=== PATIENT | female | born 1995 | race Caucasian/White ===

== ENCOUNTER 2023-10-09 09:45 | Emergency (ER) | payer MEDICAID, OTHER ==
[~2023-10-09] VITALS: Ht 157.5 cm; Wt 64.0 kg
[2023-10-09 10:23] VITALS: TEMP 98.6
[2023-10-09 10:25] VITALS: PULSE 124; RESP 20; O2SAT 94
[2023-10-09] MEDS: SODIUM CHLORIDE 0.9% 1,000 ML IV ONE (11:19)
[2023-10-09] MEDS: levETIRAcetam 1000 mg/100ml 100 ML IV ONE (11:55)
[2023-10-09] MEDS: LORazepam 2MG/ML-1ML VIAL IV ONE (11:55)
[2023-10-09 12:13] LABS: Basophils # (auto) 0.1 10 ^3/uL (0-0.2); Basophils % (auto) 0.6 % (0.0-2.0); Eosinophils # (auto) 0 10 ^3/uL (0-0.8); Hematocrit 41.6 % (36.0-46.0); Hemoglobin 14.3 g/dL (12.2-16.2); Lymphocytes % (auto) 20.4 % (10.0-50.0); Mean Corpuscular Hemoglobin 31.7 pg (28.0-32.0); Mean Corpuscular Hgb Conc. 34.4 g/dL (32.0-36.0); Mean Corpuscular Volume 92.1 fL (80.0-100.0); Monocytes # (auto) 0.3 10 ^3/uL (0-1.3); Monocytes % (auto) 2.8 % (0.0-12.0); Neutrophils # (auto) 7.4 10 ^3/uL (1.6-8.6); Neutrophils % (auto) 76.2 % (37.0-80.0); Red Blood Cells 4.51 10^6/uL (4.0-5.20); Red Cell Distribution Width 12.3 % (11.8-14.3); White Blood Cell 9.7 10^3/uL (4.4-10.8)
[2023-10-09 12:27] LABS: Alanine Aminotransferase 42 U/L (7-40); Alkaline Phosphatase 53 U/L (46-116); Anion Gap 6 (5-15); Aspartate Aminotransferase 41 U/L (13-40); BUN/Creatinine Ratio 10.2 (10.0-20.0); Bilirubin, Total 0.7 mg/dL (0.2-1.0); Blood Urea Nitrogen 6 mg/dL (9-23); Calcium 9.9 mg/dL (8.5-10.1); Carbon Dioxide 24 mmol/L (20-30); Chloride 106 mmol/L (98-107); Glucose 93 mg/dL (74-106); Potassium 4.3 mmol/L (3.5-5.1); Sodium 136 mmol/L (136-145); Total Protein 7.7 g/dL (5.7-8.2)
[2023-10-09 12:29] LABS: Thyroid Stimulating Hormone 0.92 uIU/mL (0.55-4.78)
[2023-10-09 12:34] LABS: Beta HCG, Quantitative 1.4 mIU/mL (1.5-4.2)
[2023-10-09 16:00] VITALS: BP 112/76; PULSE 110; RESP 16; O2SAT 98
[2023-10-09] MEDS ORDERED: DICL75TA2 PO (16:02)
== END 2023-10-09 16:52 | disposition home or self-care (01) ==
LOC: EDBD 09:45 → ER 09:45
DX: S80.02XA Contusion of left knee, initial encounter (principal); R10.2 Pelvic and perineal pain; S29.8XXA Other specified injuries of thorax, initial encounter; R55 Syncope and collapse; G40.909 Epilepsy, unspecified, not intractable, without status epilepticus; R74.8 Abnormal levels of other serum enzymes; Z79.899 Other long term (current) drug therapy; V43.52XA Car driver injured in collision with other type car in traffic accident, initial encounter; Y93.89 Activity, other specified; Y92.488 Other paved roadways as the place of occurrence of the external cause; Y99.8 Other external cause status
CPT/HCPCS: 36415; 70450; 71046; 73562; 80053; 84443; 84484; 84702; 85025; 93005; 96365; 96375; 99285; J1953; J2060; J7030

== ENCOUNTER 2024-04-20 14:07 | Emergency (ER) | payer BC, MEDICAID ==
[~2024-04-20] VITALS: Ht 162.6 cm; Wt 81.8 kg
[~2024-04-20 14:07] MED LIST: DICL75TA2 PO
[2024-04-20 15:01] LABS: Basophils # (auto) 0 10 ^3/uL (0-0.2); Basophils % (auto) 0.5 % (0.0-2.0); Eosinophils # (auto) 0 10 ^3/uL (0-0.8); Eosinophils % (auto) 0.4 % (0.0-7.0); Hematocrit 39.6 % (36.0-46.0); Hemoglobin 13.7 g/dL (12.2-16.2); Lymphocytes # (auto) 3.4 10 ^3/uL (0.4-5.4); Lymphocytes % (auto) 40.3 % (10.0-50.0); Mean Corpuscular Hemoglobin 31.5 pg (28.0-32.0); Mean Corpuscular Hgb Conc. 34.7 g/dL (32.0-36.0); Mean Corpuscular Volume 90.9 fL (80.0-100.0); Monocytes # (auto) 0.5 10 ^3/uL (0-1.3); Monocytes % (auto) 6.3 % (0.0-12.0); Neutrophils # (auto) 4.4 10 ^3/uL (1.6-8.6); Neutrophils % (auto) 52.5 % (37.0-80.0); Nucleated Red Blood Cells % 0.1 %; Platelet Count (auto) 395 10^3/uL (140-450); Red Blood Cells 4.36 10^6/uL (4.0-5.20); Red Cell Distribution Width 12.2 % (11.8-14.3); White Blood Cell 8.4 10^3/uL (4.4-10.8)
[2024-04-20 15:08] LABS: Alkaline Phosphatase 67 U/L (46-116); Anion Gap 9 (5-15); Aspartate Aminotransferase 39 U/L (13-40); BUN/Creatinine Ratio 11.7 (10.0-20.0); Blood Urea Nitrogen 9 mg/dL (9-23); Calcium 10.1 mg/dL (8.7-10.4); Carbon Dioxide 26 mmol/L (20-31); Chloride 104 mmol/L (98-107); Glucose 90 mg/dL (74-106); Magnesium 1.9 mg/dL (1.6-2.6); Potassium 3.7 mmol/L (3.5-5.1); Sodium 139 mmol/L (136-145); Total Protein 7.7 g/dL (5.7-8.2)
[2024-04-20 15:09] LABS: Bilirubin, Total 0.4 mg/dL (0.2-1.0)
[2024-04-20 15:19] LABS: Alanine Aminotransferase 47 U/L (7-40)
--- NOTE | 2024-04-20 15:35 | ED.PDOC ---
History of Present Illness HPI Comments 28 y/o F, with a Hx of seizures, presents for c/o seizure-like activity, today. Patient endorses on having a sudden and unprovoked seizure at work, today, that was witnessed by her coworkers. Patient states on being informed on having a seizure by aforementioned coworkers that lasted 2x minutes in duration and was characterized by gargling and her "staring off into space," while seated in her workstation. Patient comments only recalling on working, while seated, in front of her computer and then blackening out and awakening in the same wheelchair she presents in at time of assessment. She states on last seizure episode taking place in October 17 2023 and taking 500mg Keppra TID. 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 She denies any trauma, incontinence, headache, weakness, or other associated symptoms or modifiers at this time. Chief Complaint: Seizure Time Seen by MD: 15:05 Primary Care Provider: TASHA De La Fuente Notes: Nurses Notes, Medications, Allergies Allergies: Coded Allergies: NO KNOWN ALLERGIES (Unverified , 10/09/23) Home Meds Active Scripts Diclofenac Sodium (Diclofenac Sodium) 75 Mg Tab, 75 MG PO BID for 5 Days, #10 TAB Prov:KATT OSORIO MD 10/09/23 Information Source: Patient Mode of Arrival: Ambulatory Severity: Moderate Timing: Hours Duration: Minutes Prehospital treatment: None Past Medical History PAST MEDICAL HISTORY: Seizures Past Medical History (Other): obesity Surgical History: Denies all surgeries PICKLING 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 Family History Family History: Unknown Social History Smoker: Non-Smoker Alcohol: Denies ETOH Use Drugs: Denies Drug Use Lives In: Home Constitutional: denies: chills, diaphoresis, fatigue, fever, malaise, sweats, weakness, others EENTM: denies: blurred vision, double vision, ear bleeding, ear discharge, ear drainage, ear pain, ear ringing, eye pain, eye redness, hearing loss, mouth pain, mouth swelling, nasal discharge, nose bleeding, nose congestion, nose pain, photophobia, tearing, throat pain, throat swelling, voice changes, others Respiratory: denies: cough, hemoptysis, orthopnea, SOB at rest, shortness of breath, SOB with excertion, stridor, wheezing, others Cardiovascular: denies: chest pain, dizzy spells, diaphoresis, Dyspnea on exertion, edema, irregular heart beat, left arm pain, lightheadedness, palpitations, PND, syncope, others Gastrointestinal: denies: abdomen distended, abdominal pain, blood streaked bowels, constipated, diarrhea, dysphagia, difficulty swallowing, hematemesis, m joey, nausea, poor appetite, poor fluid intake, rectal bleeding, rectal pain, vomiting, others Genitourinary: denies: abnormal vagina bleeding, burning, dyspareunia, dysuria, flank pain, frequency, hematuria, incontinence, pain, , vagina discharge, urgency, others Neurological: reports: seizure; denies: dizziness, fainting, headache, left sided numbness, left sided weakness, numbness, paresthesia, pre-existing deficit, right sided numbness, right sided weakness, speech problems, tingling, tremors, weakness, others Musculoskeletal: denies: back pain, gout, joint pain, joint swelling, muscle pain, muscle stiffness, neck pain, others Integumetry: denies: bruises, change in color, change in hair/nails, dryness, laceration, lesions, lumps, rash, wounds, others Allergic/Immunocompromised: denies: Difficulty Healing, Frequent Infections, Hives, Itching, others Hematologic/Lymphatic: denies: anemia, blood clots, easy bleeding, easy bruising, swollen glands, others Endocrine: denies: excessive hunger, excessive sweating, excessive thirst, excessive urination, flushing, intolerance to cold, intolerance to heat, unexplained weight gain, unexplained weight loss, others Psychiatric: denies: anxiety, bipolar disorder, depression, hopeless, panic disorder, schizophrenia, sleepless, suicidal, others All Other Systems: Reviewed and Negative Physical Exam General Appearance: No Apparent Distress HEENT: Normal ENT Inspection, Pharynx Normal, TMs Normal Neck: Full Range of Motion, Non-Tender, Normal, Normal Inspection Respiratory: Chest Non-Tender, Lungs Clear, No Accessory Muscle Use, No Respiratory Distress, Normal Breath Sounds Cardiovascular: No Edema, No JVD, No Murmur, No Gallop, Normal Peripheral Pulses, Regular Rate/Rhythm Breast Exam: Deferred Gastrointestinal: No Organomegaly, Non Tender, No Pulsatile Mass, Normal Bowel Sounds, Soft Genitalia: Deferred Pelvic: Deferred Rectal: Deferred Extremities: No calf tenderness, Normal capillary refill, Normal inspection, Normal range of motion, Non-tender, No pedal edema Musculoskeletal : Apperance: Normal Neurologic: Alert, obstetrics nurse II-XII nml as Tested, No Motor Deficits, Normal Affect, Normal Mood, No Sensory Deficits Cerebellar Function: Normal Reflexes: Normal Skin: Dry, Normal Color, Warm Lymphatic: No Adenopathy Was a procedure done? Was a procedure done?: No Differential Dx Considerations may include: seizure, pseudoseizure, inappropriate medication dosage, electrolyte imbalance X-Ray, Labs, Meds, VS Vital Signs Date Time Temp Pulse Resp B/P (MAP) Pulse Ox O2 Delivery O2 Flow Rate FiO2 04/20/24 16:00 98.3 96 16 141/88 (105) 96 98.3 04/20/24 15:49 17 Room Air* 0 21 04/20/24 14:28 99.3 116 20 145/98 (114) 96 Lab Test 04/20/24 14:20 Range/Units White Blood Count 8.4 4.4-10.8 10^3/uL Red Blood Count 4.36 4.0-5.20 10^6/uL Hemoglobin 13.7 12.2-16.2 g/dL Hematocrit 39.6 36.0-46.0 % Mean Corpuscular Volume 90.9 80.0-100.0 fL Mean Corpuscular Hemoglobin 31.5 28.0-32.0 pg Mean Corpuscular Hemoglobin Concent 34.7 32.0-36.0 g/dL Red Cell Distribution Width 12.2 11.8-14.3 % Platelet Count 395 140-450 10^3/uL Mean Platelet Volume 7.4 6.9-10.8 fL Neutrophils (%) (Auto) 52.5 37.0-80.0 % Lymphocytes (%) (Auto) 40.3 10.0-50.0 % Monocytes (%) (Auto) 6.3 0.0-12.0 % Eosinophils (%) (Auto) 0.4 0.0-7.0 % Basophils (%) (Auto) 0.5 0.0-2.0 % Neutrophils # (Auto) 4.4 1.6-8.6 10 ^3/uL Lymphocytes # (Auto) 3.4 0.4-5.4 10 ^3/uL Monocytes # (Auto) 0.5 0-1.3 10 ^3/uL Eosinophils # (Auto) 0 0-0.8 10 ^3/uL Basophils # (Auto) 0 0-0.2 10 ^3/uL Nucleated Red Blood Cells 0.1 % Sodium Level 139 136-145 mmol/L Potassium Level 3.7 3.5-5.1 mmol/L Chloride Level 104 98-107 mmol/L Carbon Dioxide Level 26 20-31 mmol/L Anion Gap 9 5-15 Blood Urea Nitrogen 9 9-23 mg/dL Creatinine 0.77 0.550-1.02 mg/dL Glomerular Filtration Rate Calc 108 >90 mL/min BUN/Creatinine Ratio 11.7 10.0-20.0 Serum Glucose 90 74-106 mg/dL Calcium Level 10.1 8.7-10.4 mg/dL Magnesium Level 1.9 1.6-2.6 mg/dL Total Bilirubin 0.4 0.2-1.0 mg/dL Aspartate Amino Transferase (AST) 39 13-40 U/L Alanine Aminotransferase (ALT) 47 H 7-40 U/L Alkaline Phosphatase 67 46-116 U/L Total Protein 7.7 5.7-8.2 g/dL Albumin 5.0 H 3.2-4.8 g/dL Current Medications Medications (Trade) Dose Ordered Sig/Christie Route Start Time Stop Time Status Last Admin Levetiracetam (Keppra Tablet) 500 mg ONCE ONCE PO 04/20/24 15:30 04/20/24 15:31 DC 04/20/24 15:47 The CBC and chemistry panel are within normal limits The patient was given Keppra 500 mg by mouth here in the emergency department's At time, the patient will be discharged The patient was been seizure-free in the emergency department's The patient does have her evening dose of Keppra which she will take an home The patient will return to the emergency department's condition worsens. The patient understands and agrees with the management. We have explained to the patient that she can not operate any heavy per minutes including cars Time of 1ST Reevaluation: 15:35 Reevaluation 1ST: Unchanged Patient Education/Counseling: Diagnosis, Treatment, Prognosis, Need For Follow Up Family Education/Counseling: No Family Present Departure 1 Departure Time of Disposition: 16:07 Impression: Primary Impression: Breakthrough seizure Disposition: 01 HOME / SELF CARE / HOMELESS Condition: Fair Discharged With: Self Critical Care Note Critical Care Time?: No Stability Stability form required: No Heart Score Heart Score: Heart Score Response (Comments) Value History N/A 0 EKG N/A 0 Age N/A 0 Risk Factors N/A 0 Troponin N/A 0 Total 0 I personally scribed for SHERIE CHRISTENSEN MD ([email or web address]) on 04/20/24 at 15:35. Electronically submitted by Lukas Contreras ([email or web address]). SHERIE CHRISTENSEN MD Apr 20, 2024 15:35
[2024-04-20] MEDS: levETIRAcetam 500 MG TAB PO ONE (15:47)
[2024-04-20 15:49] VITALS: RESP 17
[2024-04-20 16:00] VITALS: BP 141/88; PULSE 96; RESP 16; TEMP 98.3; O2SAT 96
[2024-04-20 16:39] LABS: Urine Bacteria None Seen /hpf (None Seen)
[2024-04-20 17:36] LABS: Urine Blood Negative /uL (Negative); Urine Clarity Clear (Clear); Urine Color Colorless (Yellow); Urine Protein, UAD Negative (Negative); Urine Urobilinogen Normal (Negative); Urine WBC <1 /hpf (0 - 5); Urine pH 5.5 (5.0-9.0)
== END 2024-04-20 16:23 | disposition home or self-care (01) ==
LOC: ER 14:07
DX: G40.909 Epilepsy, unspecified, not intractable, without status epilepticus (principal); Z79.899 Other long term (current) drug therapy
CPT/HCPCS: 36415; 80053; 81001; 83735; 85025

== ENCOUNTER 2024-09-08 08:31 | Inpatient (IN) | payer BC ==
[~2024-09-08] VITALS: Ht 162.6 cm; Wt 99.1 kg
--- NOTE | 2024-09-08 08:42 | ED.PDOC ---
History of Present Illness HPI Comments 29-year-old female with PMHx Seizures brought in by EMS presents with a chief complaint of seizure activity x 1 hour. Per EMS, patient had x3 grand mal seizures that were witnessed by her mother at home this morning around 0600. Patient was initially postictal for EMS, but is now A&Ox4 upon arrival to the ER . There is mild oral trauma from patient biting her tongue during the seizure episodes. Patient is compliant with all her medications and states that she takes Keppra 500mg x3 times a day. Last seizure was x1 year ago. Patient is presenting with some nausea and vomiting x1 episode. Blood sugar was 134 on arrival. 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 Pertinent 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 History Family History Family History: Unknown Social History Smoker: Non-Smoker Alcohol: Denies ETOH Use Drugs: Denies Drug Use Lives In: Home Constitutional: denies: chills, diaphoresis, fatigue, fever, malaise, sweats, weakness, others EENTM: denies: blurred vision, double vision, ear bleeding, ear discharge, ear drainage, ear pain, ear ringing, eye pain, eye redness, hearing loss, mouth pain, mouth swelling, nasal discharge, nose bleeding, nose congestion, nose pain, photophobia, tearing, throat pain, throat swelling, voice changes, others Respiratory: denies: cough, hemoptysis, orthopnea, SOB at rest, shortness of breath, SOB with excertion, stridor, wheezing, others Cardiovascular: denies: chest pain, dizzy spells, diaphoresis, Dyspnea on exertion, edema, irregular heart beat, left arm pain, lightheadedness, palpitations, PND, syncope, others Gastrointestinal: reports: nausea, vomiting; denies: abdomen distended, abdominal pain, blood streaked bowels, constipated, diarrhea, dysphagia, difficulty swallowing, hematemesis, melena, poor appetite, poor fluid intake, rectal bleeding, rectal pain, others Genitourinary: denies: abnormal vagina bleeding, burning, dyspareunia, dysuria, flank pain, frequency, hematuria, incontinence, pain, , vagina discharge, urgency, others Neurological: reports: seizure; denies: dizziness, fainting, headache, left sided numbness, left sided weakness, numbness, paresthesia, pre-existing d eficit, right sided numbness, right sided weakness, speech problems, tingling, tremors, weakness, others Musculoskeletal: denies: back pain, gout, joint pain, joint swelling, muscle pain, muscle stiffness, neck pain, others Integumetry: denies: bruises, change in color, change in hair/nails, dryness, laceration, lesions, lumps, rash, wounds, others Allergic/Immunocompromised: denies: Difficulty Healing, Frequent Infections, Hives, Itching, others Hematologic/Lymphatic: denies: anemia, blood clots, easy bleeding, easy bruising, swollen glands, others Endocrine: denies: excessive hunger, excessive sweating, excessive thirst, excessive urination, flushing, intolerance to cold, intolerance to heat, unexplained weight gain, unexplained weight loss, others Psychiatric: denies: anxiety, bipolar disorder, depression, hopeless, panic disorder, schizophrenia, sleepless, suicidal, others All Other Systems: Reviewed and Negative Physical Exam General Appearance: Moderate Distress, Normal HEENT: Normal ENT Inspection, Pharynx Normal, TMs Normal Neck: Full Range of Motion, Non-Tender, Normal, Normal Inspection Respiratory: Chest Non-Tender, Lungs Clear, No Accessory Muscle Use, No Respiratory Distress, Normal Breath Sounds Cardiovascular: No Edema, No JVD, No Murmur, No Gallop, Normal Peripheral Pulses, Regular Rate/Rhythm Breast Exam: Deferred Gastrointestinal: No Organomegaly, Non Tender, No Pulsatile Mass, Normal Bowel Sounds, Soft Genitalia: Deferred Pelvic: Deferred Rectal: Deferred Extremities: No calf tenderness, Normal capillary refill, Normal inspection, Normal range of motion, Non-tender, No pedal edema Musculoskeletal : Apperance: Normal Neurologic: Disoriented Cerebellar Function: NOT DONE Reflexes: NOT DONE Skin: Dry, Normal Color, Warm Lymphatic: No Adenopathy Was a procedure done? Was a procedure done?: No Differential Dx Considerations may include: Seizure Electrolyte imbalance X-Ray, Labs, Meds, VS Vital Signs Date Time Temp Pulse Resp B/P (MAP) Pulse Ox O2 Delivery O2 Flow Rate FiO2 09/08/24 12:00 111 20 132/68 (89) 95 09/08/24 10:30 105 20 118/77 (91) 100 09/08/24 09:22 98.9 115 20 118/78 (91) 98.9 09/08/24 08:38 98.4 148 18 131/79 (96) 98 98.4 Lab Test 09/08/24 09:11 Range/Units White Blood Count 11.4 H 4.4-10.8 10^3/uL Red Blood Count 4.79 4.0-5.20 10^6/uL Hemoglobin 15.0 12.2-16.2 g/dL Hematocrit 43.3 36.0-46.0 % Mean Corpuscular Volume 90.4 80.0-100.0 fL Mean Corpuscular Hemoglobin 31.4 28.0-32.0 pg Mean Corpuscular Hemoglobin Concent 34.8 32.0-36.0 g/dL Red Cell Distribution Width 12.2 11.8-14.3 % Platelet Count 368 140-450 10^3/uL Mean Platelet Volume 7.1 6.9-10.8 fL Neutrophils (%) (Auto) 85.0 H 37.0-80.0 % Lymphocytes (%) (Auto) 12.3 10.0-50.0 % Monocytes (%) (Auto) 2.0 0.0-12.0 % Eosinophils (%) (Auto) 0.1 0.0-7.0 % Basophils (%) (Auto) 0.6 0.0-2.0 % Neutrophils # (Auto) 9.7 H 1.6-8.6 10 ^3/uL Lymphocytes # (Auto) 1.4 0.4-5.4 10 ^3/uL Monocytes # (Auto) 0.2 0-1.3 10 ^3/uL Eosinophils # (Auto) 0 0-0.8 10 ^3/uL Basophils # (Auto) 0.1 0-0.2 10 ^3/uL Nucleated Red Blood Cells 0.1 % Sodium Level 137 136-145 mmol/L Potassium Level 3.7 3.5-5.1 mmol/L Chloride Level 103 98-107 mmol/L Carbon Dioxide Level 20 20-31 mmol/L Anion Gap 14 5-15 Blood Urea Nitrogen 9 9-23 mg/dL Creatinine 0.83 0.550-1.02 mg/dL Glomerular Filtration Rate Calc 98 >90 mL/min BUN/Creatinine Ratio 10.8 10.0-20.0 Serum Glucose 117 H 74-106 mg/dL Calcium Level 10.2 8.7-10.4 mg/dL Current Medications Medications (Trade) Dose Ordered Sig/Christie Route Start Time Stop Time Status Last Admin Sodium Chloride 1,000 ml @ 1,000 mls/hr Q1H ONCE IV 09/08/24 09:00 09/08/24 09:59 DC 09/08/24 10:03 Levetiracetam 100 ml @ 400 mls/hr ONCE ONCE IV 09/08/24 09:00 09/08/24 09:14 DC 09/08/24 09:34 Acetaminophen (Tylenol Tablet) 650 mg ONCE ONCE PO 09/08/24 11:45 09/08/24 11:46 DC 09/08/24 11:50 Patient is slightly disoriented. Postictal. Vitals stable. Establish intravenous access. Was given fluids. Was given Keppra. Has a blood streak her in the corner of the mouth. Tongue abrasion. She has been tachycardic since she arrived. Wanted to discharge the patient when her heart rate still can continues to be high. Explained to the patient that she will need echocardiogram further testing because of the heart rate. Possible mitral valve. Cardiology consultation. Echocardiogram. Continue to monitor. Time of 1ST Reevaluation: 08:39 (EXPLAINED TO THE PATIENT THAT THEY MAY BE STAYING WITH US IN THE HOSPITAL, BUT IF STABLE FOR DISCHARGE, THEY WILL BE NOTIFIED AND SENT HOME. ) Reevaluation 1ST: Unchanged Time of 2ND Reevaluation: 09:03 Reevaluation 2ND: Unchanged Patient Education/Counseling: Diagnosis, Treatment Family Education/Counseling: No Family Present Departure 1 Departure Time of Disposition: 15:02 Impression: Primary Impression: Metabolic encephalopathy Additional Impressions: Seizure disorder Tachycardia Disposition: ADMITTED INPATIENT Admit to: Med Surg Condition: Guarded Comments 14:55 - SPOKE WITH THE PATIENT REGARDING FINDINGS/RESULTS AND THAT BASED ON PATIENT PRESENTATION AND SINUS TACHYCARDIA ONSET, IT WOULD BE BEST TO ADMIT THE PATIENT FOR CARDIOLOGY WORK-UP. PATIENT IS IN AGREEMENT WITH THE PLAN OF CARE. Critical Care Note Critical Care Time?: Yes (90 min-critical care time only) Critical care comment: She continues to be tachycardic. Stability Stability form required: No Heart Score Heart Score: Heart Score Response (Comments) Value History Slightly Suspicious 0 EKG Normal 0 Age <45 0 Risk Factors No known risk factors 0 Troponin Normal limit 0 Total 0 I personally scribed for RIA WOOD MD ([email or web address]) on 09/08/24 at 08:42. Electronically submitted by Marko Whitlock ([email or web address]). I personally scribed for RIA WOOD MD ([email or web address]) on 09/08/24 at 14:56. Electronically submitted by Marko Whitlock ([email or web address]). RIA WOOD MD September 08, 2024 08:42
[2024-09-08 09:29] LABS: Basophils # (auto) 0.1 10 ^3/uL (0-0.2); Basophils % (auto) 0.6 % (0.0-2.0); Eosinophils # (auto) 0 10 ^3/uL (0-0.8); Eosinophils % (auto) 0.1 % (0.0-7.0); Hematocrit 43.3 % (36.0-46.0); Lymphocytes # (auto) 1.4 10 ^3/uL (0.4-5.4); Lymphocytes % (auto) 12.3 % (10.0-50.0); Mean Corpuscular Hemoglobin 31.4 pg (28.0-32.0); Mean Corpuscular Hgb Conc. 34.8 g/dL (32.0-36.0); Mean Corpuscular Volume 90.4 fL (80.0-100.0); Monocytes # (auto) 0.2 10 ^3/uL (0-1.3); Neutrophils # (auto) 9.7 10 ^3/uL (1.6-8.6); Nucleated Red Blood Cells % 0.1 %; Platelet Count (auto) 368 10^3/uL (140-450); Red Blood Cells 4.79 10^6/uL (4.0-5.20); Red Cell Distribution Width 12.2 % (11.8-14.3); White Blood Cell 11.4 10^3/uL (4.4-10.8)
[2024-09-08] MEDS: levETIRAcetam 500 mg/100ml 100 ML IV ONE (09:34)
[2024-09-08 09:37] LABS: Chloride 103 mmol/L (98-107); Potassium 3.7 mmol/L (3.5-5.1); Sodium 137 mmol/L (136-145)
[2024-09-08 09:38] LABS: Anion Gap 14 (5-15)
[2024-09-08 09:39] LABS: Calcium 10.2 mg/dL (8.7-10.4)
[2024-09-08 09:44] LABS: BUN/Creatinine Ratio 10.8 (10.0-20.0); Blood Urea Nitrogen 9 mg/dL (9-23); Carbon Dioxide 20 mmol/L (20-31); Glucose 117 mg/dL (74-106)
[2024-09-08] MEDS: SODIUM CHLORIDE 0.9% 1,000 ML IV ONE ×2 (10:03→16:48)
[2024-09-08] MEDS: ACETAMINOPHEN 325 MG TAB PO ONE (11:50)
[2024-09-08] MEDS ORDERED: DOCUSATE SOD 100 MG CAP PO PRN (15:15)
[2024-09-08] MEDS ORDERED: NITROGLYCERIN 0.4 MG SL TAB SL PRN (15:15)
[2024-09-08] MEDS ORDERED: ONDANSETRON HCL 4 MG/2 ML VIAL IV PRN (15:15)
[2024-09-08] MEDS ORDERED: MORPHINE SULFATE INJ 2 MG/ml SYRG IV PRN (15:15)
[2024-09-08] MEDS ORDERED: LEVE500T3 PO (15:25)
[2024-09-08] MEDS: LORazepam 2MG/ML-1ML VIAL IV ONE (15:29)
--- NOTE | 2024-09-08 15:38 | DVHHP2 ---
History of Present Illness Reason for Visit: Seizure History of Present Illness Erin Caro is a 29-year-old female with past medical history of seizures, who came to the hospital today due to having 3 grand mal seizures. Patient lives with her mother. Her mother was home this morning and witnessed her seizures. She states she had 3 seizures. The first 2 were small, but the third lasted longer then normal, prompting her to call EMS. She states her daughter had blood coming out of her mouth, was gasping for air, and was turning purple. While in the ER it was discovered that her she is ST 120-130's. Patient states that she has been feeling palpitations for the last few months when going to bed. She st ates she mostly only feels it when laying down, and it is worse when she lays on her side. 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 Past Surgical History: None Smoke: No ALCOHOL: none Drugs: None Lives: with Family Domestic Violence: Neg Review of Systems Constitutional: No: Fever, Chills, Sweats, Weakness, Malaise, Other Eyes: No: Pain, Vision change, Conjunctivae inflammation, Eyelid inflammation, Other, Redness ENT: No: Ear pain, Ear discharge, Nose pain, Nose discharge, Nose congestion, Mouth pain, Mouth swelling, Throat pain, Throat swelling, Other Respiratory: No: Cough, Dry, Shortness of breath, SOB with excertion, Wheezing, Hemoptysis, Pleuritic Pain, Sputum, Wheezing, Other Cardiovascular: No: Chest Pain, Palpitations, Orthopnea, Paroxysmal Noc. Dyspnea, Edema, Lt Headedness, Other Gastrointestinal: No: Nausea, Vomiting, Abdominal Pain, Diarrhea, Constipation, Melena, Hematochezia, Other Genitourinary: No Dysuria, No Frequency, No Incontinence, No Hematuria, No Re tention, No Other Musculoskeletal: No: other, neck pain, shoulder pain, arm pain, back pain, hand pain, leg pain, foot pain Skin: No: Rash, Lesions, Jaundice, Bruising, Other Neurological: Seizures; No: Weakness, Numbness, Incoordination, Change in speech, Confusion, Other Allergies: Coded Allergies: NO KNOWN ALLERGIES (Unverified , 10/09/23) Medications Current Medications Medications Dose Ordered Sig/Christie Route Start Time Stop Time Status Last Admin Dose Admin Acetaminophen/ Hydrocodone Bitart 1 tab Q4HP PRN PO 09/08/24 15:15 UNV Ondansetron HCl 4 mg Q4HP PRN IV 09/08/24 15:15 UNV Docusate Sodium 100 mg BIDPRN PRN PO 09/08/24 15:15 UNV Acetaminophen 650 mg Q6HP PRN PO 09/08/24 15:15 UNV Nitroglycerin 0.4 mg Q5MINP PRN SL 09/08/24 15:15 UNV Morphine Sulfate 2 mg Q30M PRN IV 09/08/24 15:15 UNV Levetiracetam 500 mg TID PO 09/08/24 22:00 UNV Exam Vital Signs Vital Signs Date Time Temp Pulse Resp B/P (MAP) Pulse Ox O2 Delivery O2 Flow Rate FiO2 09/08/24 12:00 111 20 132/68 (89) 95 09/08/24 09:22 98.9 98.9 General Appearance: Alert, Oriented X3, Cooperative, mild distress HEENT: Atraumatic, PERRLA Respiratory: Clear to auscultation, Normal air movement Cardiovascular: Normal S1, Normal S2, Other (ST) Abdominal: Normal bowel sounds, Soft, No tenderness Extremities: No clubbing, No cyanosis, No edema, Normal pulses, No tenderness/swelling Skin: No rashes, No breakdown, No significant lesion Neuro: Normal gait, Normal speech, Strength at 5/5 X4 ext, Normal tone Psych/Mental Status: Mental status NL, Mood NL Labs/Xrays Labs Test 09/08/24 09:11 Range/Units White Blood Count 11.4 H 4.4-10.8 10^3/uL Red Blood Count 4.79 4.0-5.20 10^6/uL Hemoglobin 15.0 12.2-16.2 g/dL Hematocrit 43.3 36.0-46.0 % Mean Corpuscular Volume 90.4 80.0-100.0 fL Mean Corpuscular Hemoglobin 31.4 28.0-32.0 pg Mean Corpuscular Hemoglobin Concent 34.8 32.0-36.0 g/dL Red Cell Distribution Width 12.2 11.8-14.3 % Platelet Count 368 140-450 10^3/uL Mean Platelet Volume 7.1 6.9-10.8 fL Neutrophils (%) (Auto) 85.0 H 37.0-80.0 % Lymphocytes (%) (Auto) 12.3 10.0-50.0 % Monocytes (%) (Auto) 2.0 0.0-12.0 % Eosinophils (%) (Auto) 0.1 0.0-7.0 % Basophils (%) (Auto) 0.6 0.0-2.0 % Neutrophils # (Auto) 9.7 H 1.6-8.6 10 ^3/uL Lymphocytes # (Auto) 1.4 0.4-5.4 10 ^3/uL Monocytes # (Auto) 0.2 0-1.3 10 ^3/uL Eosinophils # (Auto) 0 0-0.8 10 ^3/uL Basophils # (Auto) 0.1 0-0.2 10 ^3/uL Nucleated Red Blood Cells 0.1 % Sodium Level 137 136-145 mmol/L Potassium Level 3.7 3.5-5.1 mmol/L Chloride Level 103 98-107 mmol/L Carbon Dioxide Level 20 20-31 mmol/L Anion Gap 14 5-15 Blood Urea Nitrogen 9 9-23 mg/dL Creatinine 0.83 0.550-1.02 mg/dL Glomerular Filtration Rate Calc 98 >90 mL/min BUN/Creatinine Ratio 10.8 10.0-20.0 Serum Glucose 117 H 74-106 mg/dL Calcium Level 10.2 8.7-10.4 mg/dL Assessment/Plan Assessment/Plan Assessment: Tachycardia, Seizure, Plan: Admit to Tele, Cardiology consult, ECHO, CT head, IV hydration, IV Keppra, PRN Ativan, Home medications reconciled, Plan discussed with: Patient, Other (Mother) My Orders Orders - DREW PARK Procedure Category Date Status Time Admit ADMIT 09/08/24 Transmitted 15:11 Code Status CODE 09/08/24 Transmitted 15:11 Hydrocodone-Acet PHA 09/08/24 Transmitted 5/325mg Tab ([place] 15:15 Ondansetron Hcl PHA 09/08/24 Transmitted (Zofran) 15:15 Docusate Sodium PHA 09/08/24 Transmitted Capsule (Colace 15:15 Complete Blood Count LAB 09/09/24 Verified 04:00 Comprehensive LAB 09/09/24 Verified Metabolic Panel 04:00 Condition: Serious OSCAR 09/08/24 Transmitted 15:11 Acetaminophen Tablet PHA 09/08/24 Transmitted (Tylenol Tablet) 15:15 Nitroglycerin [facility] 09/08/24 Transmitted Sublingual (Ntrostat 15:15 Morphine Sulfate PHA 09/08/24 Transmitted Injection 15:15 Stat Ekg For Chest [facility] 09/08/24 Transmitted Pain 15:11 Notify Md Of Changes [facility] 09/08/24 Transmitted From Base 15:11 Counterintelligence Analyst For [facility] 09/08/24 Transmitted 24 Hours 15:11 Emergency Dysrhythmia [facility] 09/08/24 Transmitted Protocol 15:11 Rhythm Strips Once [facility] 09/08/24 Transmitted Every Shift 15:11 Oxygen By Nasal 09/08/24 Transmitted Cannula 15:11 Seizure Precautions [facility] 09/08/[address] 15:11 Levetiracetam Tablet [facility] 09/08/24 Transmitted (Keppra Tablet) 22:00 Date of Service: September 08, 2024 Billing Provider: DREW PARK Common Visit Codes: [id number] INP/OBS CARE (MOD) DREW PARK September 08, 2024 15:38
[2024-09-08] MEDS ORDERED: LORazepam 2MG/ML-1ML VIAL IV PRN (15:45)
--- NOTE | 2024-09-08 15:54 | DVH ---
EXAM: CT HEAD WITHOUT CONTRAST INDICATION: seizure TECHNIQUE: CT of the head without intravenous contrast. Radiation Dose : 1. Head: CT Dose: CTDI volume is 52.2 mGy. Dose-length product is 837 mGy*cm The dose indicators for CT are the volume Computed Tomography (CT) Dose Index (CTDIvol) and the Dose Length Product (DLP), and are measured in units of mGy and mGy-cm, respectively. These indicators are not patient dose, but values generated from the CT scanner acquisition factors. The report includes radiation exposure data for exposures received during this examination. COMPARISON: CT HEAD WITHOUT CONTRAST on DOS: 10/09/23 FINDINGS: There is no evidence of acute intracranial hemorrhage, extra-axial collection, mass effect, midline s hift, herniation or hydrocephalus. The ventricles, sulci and cisterns are age appropriate. The jacome-white differentiation is intact. The visualized paranasal sinuses and mastoid air cells are clear. The surrounding soft tissues and osseous structures are unremarkable. IMPRESSION: No acute intracranial abnormality. Radiation optimization: All CT scans at this facility use at least one of these dose optimization villa hniques: automated exposure control mA and/or kV adjustment per patient size (includes targeted exam s where dose is matched to clinical indication) or iterative reconstruction.
[2024-09-08] MEDS: levETIRAcetam 500 MG TAB PO SCH (16:59)
--- NOTE | 2024-09-08 18:41 | DVHDS2 ---
ASSESSMENT ASSESSMENT Assessment Please refer patient to cardiology suite upon discharge to be fitted with spindle tester. She will be scheduled for clinic appointment with myself as well. Please consult for any new concerns. YASMINE DILL MD September 08, 2024 18:41
[2024-09-08] MEDS: ACETAMINOPHEN 325 MG TAB PO PRN (20:25)
[2024-09-08 23:42] VITALS: RESP 18; O2SAT 97
[2024-09-08 23:59] VITALS: BP 142/94; PULSE 124; RESP 18; TEMP 97.7; O2SAT 95
[2024-09-09] VITALS (9 sets, daily range): BP systolic 125–142; BP diastolic 82–98; PULSE 97–124; RESP 16–20; TEMP 97.2–99.5; O2SAT 95–98
[2024-09-09] MEDS ORDERED: MELA3TAB27 PO (01:29)
[2024-09-09] MEDS ORDERED: MAGN400T40 PO (01:29)
[2024-09-09 06:49] LABS: Basophils # (auto) 0 10 ^3/uL (0-0.2); Basophils % (auto) 0.4 % (0.0-2.0); Eosinophils # (auto) 0 10 ^3/uL (0-0.8); Eosinophils % (auto) 0.2 % (0.0-7.0); Hematocrit 39.2 % (36.0-46.0); Hemoglobin 13.4 g/dL (12.2-16.2); Lymphocytes # (auto) 3.4 10 ^3/uL (0.4-5.4); Lymphocytes % (auto) 29.8 % (10.0-50.0); Mean Corpuscular Hemoglobin 30.8 pg (28.0-32.0); Mean Corpuscular Hgb Conc. 34.1 g/dL (32.0-36.0); Mean Corpuscular Volume 90.1 fL (80.0-100.0); Monocytes # (auto) 0.7 10 ^3/uL (0-1.3); Neutrophils # (auto) 7.3 10 ^3/uL (1.6-8.6); Neutrophils % (auto) 63.6 % (37.0-80.0); Platelet Count (auto) 350 10^3/uL (140-450); Red Blood Cells 4.35 10^6/uL (4.0-5.20); Red Cell Distribution Width 12.1 % (11.8-14.3); White Blood Cell 11.5 10^3/uL (4.4-10.8)
[2024-09-09 07:01] LABS: Albumin 4.7 g/dL (3.2-4.8); Anion Gap 13 (5-15); Aspartate Aminotransferase 30 U/L (13-40); BUN/Creatinine Ratio 10.4 (10.0-20.0); Calcium 8.7 mg/dL (8.7-10.4); Carbon Dioxide 23 mmol/L (20-31); Chloride 105 mmol/L (98-107); Glucose 88 mg/dL (74-106); Potassium 3.7 mmol/L (3.5-5.1); Sodium 141 mmol/L (136-145); Total Protein 6.9 g/dL (5.7-8.2)
[2024-09-09 07:02] LABS: Alanine Aminotransferase 43 U/L (7-40); Alkaline Phosphatase 44 U/L (46-116); Bilirubin, Total 0.6 mg/dL (0.2-1.0); Blood Urea Nitrogen 7 mg/dL (9-23)
[2024-09-09] MEDS: HYDROcodone-ACET 5/325MG TAB PO PRN (11:13)
--- NOTE | 2024-09-09 13:57 | DVH ---
PROCEDURE: MRI BRAIN HEAD WO CONTRAST INDICATION: seizures EXAM DATE: 09/09/2024 12:51 PM COMPARISON: None TECHNIQUE: MRI of the brain without intravenous contrast. Seizure protocol. FINDINGS: Diffusion weighted images of the brain demonstrate no evidence of acute infarction. There is no evidence of acute intracranial hemorrhage, extra-axial collection, mass effect, midline s hift, herniation or hydrocephalus. The ventricles, sulci and cisterns appear age appropriate. The signal intensities of the brain parenchyma are within normal limits. There are no signal abnormalities on the susceptibility weighted sequences. The major vascular flow voids are present. Mild opacification of the left mastoid air cells. The surrounding soft tissues and osseous structure s are unremarkable. IMPRESSION: 1. No evidence of acute infarction, intracranial hemorrhage, mass effect or hydrocephalus. No evidenc e of mesial temporal sclerosis. Left mastoid effusion. HS:Y
--- NOTE | 2024-09-09 16:14 | DVHPN2 ---
Subjective 29-year-old female with a history of seizures came for breakthrough seizure that happened yesterday morning witnessed by her mother She takes Keppra 500 mg 3 times a day at home She says that she thinks she had a seizure because of stress at work because she worked 3 days in a row and she was very exhausted afterwards Has been slightly tachycardic since she was admitted here also Changes from previous H/P or p: Changes Eyes: No Pain, No Vision change, No Conjunctivae inflammation, No Eyelid inflammation, No Other, No Redness ENT: No Ear pain, No Ear discharge, No Nose pain, No Nose discharge, No Nose congestion, No Mouth pain, No Mouth swelling, No Throat pain, No Throat swelling, No Other Cardiovascular: No Chest Pain, No Palpitations, No Orthopnea, No Paroxysmal Noc. Dyspnea, No Edema, No Lt Headedness, No Other Respiratory: No Cough, No Dry, No Shortness of breath, No SOB with excertion, No Wheezing, No Hemoptysis, No Pleuritic Pain, No Sputum, No Other Gastrointestinal: No Nausea, No Vomiting, No Abdominal Pain, No Diarrhea, No Constipation, No Melena, No Hematochezia, No Other Genitourinary: No Dysuria, No Frequency, No Incontinence, No Hematuria, No Retention, No Other Musculoskeletal: No other, No neck pain, No shoulder pain, No arm pain, No back pain, No hand pain, No leg pain, No foot pain Skin: No Rash, No Lesions, No Jaundice, No Bruising, No Other Objective Vitals Vital Signs Date Time Temp Pulse Resp B/P (MAP) Pulse Ox O2 Delivery O2 Flow Rate FiO2 09/09/24 13:00 99.5 107 18 125/84 (98) 97 99.5 09/09/24 07:30 Room Air* 0 21 Intake/Output Intake and Output 09/09/24 07:00 Intake Total 1200 ml Balance 1200 ml Intake Oral 100 ml IV Total 1100 ml # Voids 1 General Appearance: Alert, Oriented X3, Cooperative, No acute distress Lungs: Clear to auscultation, Normal air movement Cardiovascular: Regular rate, Normal S1, Normal S2 Abdomen: Normal bowel sounds, Soft, No tenderness Extremities: No edema Medications Current Medications Medications Dose Ordered Sig/Christie Route Start Time Stop Time Status Last Admin Dose Admin Acetaminophen/ Hydrocodone Bitart 1 tab Q4HP PRN PO 09/08/24 15:15 09/09/24 11:13 1 TAB Ondansetron HCl 4 mg Q4HP PRN IV 09/08/24 15:15 Docusate Sodium 100 mg BIDPRN PRN PO 09/08/24 15:15 Acetaminophen 650 mg Q6HP PRN PO 09/08/24 15:15 09/09/24 08:58 650 MG Nitroglycerin 0.4 mg Q5MINP PRN SL 09/08/24 15:15 Morphine Sulfate 2 mg Q30M PRN IV 09/08/24 15:15 Levetiracetam 500 mg TID PO 09/08/24 15:34 09/09/24 13:47 500 MG Lorazepam 1 mg Q5MINP PRN IV 09/08/24 15:45 Laboratory Results Laboratory Tests 09/09/24 04:52 Chemistry Test 09/09/24 04:52 Albumin 4.7 g/dL (3.2-4.8) Calcium Level 8.7 mg/dL (8.7-10.4) Total Protein 6.9 g/dL (5.7-8.2) LFT Test 09/09/24 04:52 Alanine Aminotransferase (ALT) 43 U/L (7-40) H Alkaline Phosphatase 44 U/L (46-116) L Aspartate Amino Transferase (AST) 30 U/L (13-40) Total Bilirubin 0.6 mg/dL (0.2-1.0) Assessment/Plan Assessment/Plan Breakthrough seizures Seizure disorder Tachycardia Plan Keppra 500 mg t.i.d. Neurology consult MRI of the brain Cardiology consult Monitor closely The rest of the management will depend on the hospital Plan discussed with: Patient My Orders Orders - BRYSON CABRERA MD Procedure Category Date Status Time Cardiac DIET 09/09/24 Transmitted Diet-2gna,Lofat,Lochol Lunch *Consult Dr. Baer CONS 09/09/24 Transmitted Lopez 11:43 Brain Head Wo Contrast MRI 09/09/24 Resulted 11:43 Date of Service: September 09, 2024 Billing Provider: BRYSON CABRERA MD Common Visit Codes: [id number] INP/OBS CARE(HIGH) BRYSON CABRERA MD September 09, 2024 16:14
--- NOTE | 2024-09-09 21:09 | DVHINCON2 ---
Date of service: September 09, [address] Adams Reason for Consultation Seizure History of Present Illness Ms. Caro is a 29 years old right-handed female with a history of obesity, she was admitted on 09/25/2024 with a chief complaint of seizure activity. At this time, she is alert, fully oriented, she provided the following history She remembers, after watching movie with her mother, she went to bed around 11- 11:30 p.m. but the next memory was waking up with EMS personnels pushing her into an ambulance. Her family told her that she was found wandering inside the house, when her sister approached her, she asked her sister to leave her alone, the family suspected if she was looking for bathroom because they found a trace of urine on the floor. 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 She has spells event which started with headache, followed by nonresponsiveness, whole-body tightening up without shaking and she has complete amnesia about the events. Her seizure attacks are mostly when she is asleep. Her last seizure before this one was about one year ago. She saw Dr. Hadley, she had unremarkable CT and EEG. she is on Keppra 500 mg t.i.d. and she reports good compliance. She denies symptoms olfactory hallucination She has no history of traumatic head injury, intracranial infection, or family history of seizure disorder She reports a history of insomnia. She was snores, but her sleep refreshing and she has no hypersomnia/fatigue during the daytime. She denies symptoms suggestive of restless leg syndrome. 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 She uses magnesium, melatonin but they do not help much She Reports she sometimes has a feeling of on the edge, she thinks excessively. She has never been diagnosed to have anxiety WBC/HB/PLT/MCV, 09/09/2024: 11.5/13.4/350/90.1 CMP, 09/09/2024: Unremarkable MRI head, 09/09/2024: No evidence of acute infarction, intracranial hemorrhage, mass effect or hydrocephalus. No evidence of mesial temporal sclerosis. Left mastoid effusion. Past Medical History Seizures, obesity Past Surgical History None Family History: Hypertension G8 MOTHER Thyroid disease G8 MOTHER Family History Hypertension, cancer, thyroid nodule Social History She is not a tobacco smoker, she denies a history of drug or alcohol abuse Allergies: Coded Allergies: NO KNOWN ALLERGIES (Unverified , 10/09/23) Home Meds Reported Medications Melatonin (KP MELATONIN) 3 Mg Tab, 10 MG PO, TAB 09/09/24 Magnesium Oxide (MAGNESIUM OXIDE) 400 Mg Tab, 1 TAB PO DAILY, #90 TAB 3 Refills 09/09/24 Levetiracetam (Levetiracetam) 500 Mg Tab, 1 TAB PO TID 09/08/24 Discontinued Scripts Diclofenac Sodium (Diclofenac Sodium) 75 Mg Tab, 75 MG PO BID for 5 Days, #10 TAB Prov:KATT OSORIO MD 10/09/23 Review of Systems As above, the other systems are negative Vital Signs Vital Signs Date Time Temp Pulse Resp B/P (MAP) Pulse Ox O2 Delivery O2 Flow Rate FiO2 09/09/24 16:57 98.8 97 16 133/88 (103) 97 98.8 09/09/24 07:30 Room Air* 0 21 Physical Exam GENERAL EXAM: General: the patient is well developed and nourished. No acute distress. HEENT: Normocephalic, neck is supple, no carotid bruits. No mass RESPIRATORY: Normal respiratory effort with symmetrical lung expansion. Lungs clear to auscultation. CARDIOVASCULAR: Regular rate and rhythm with no murmurs. S1, S2. ABDOMEN: Soft, nontender, normal bowel sound NEUROLOGICAL: MENTAL STATUS: Awake and alert. Oriented to person, place, time and general circumstances. Able to give personal history. SPEECH, LANGUAGE, HIGHER CORTICAL FUNCTION: no aphasia or dysathria. CRANIAL NERVES: #2: Intact visual laboy to confrontation. The optic discs were sharp. #3,4,6: Pupils are equal, round and reactive. EOMs full and conjugate. No nystagmus. #5: Facial sensation intact in all three divisions bilaterally. Mandibular strength intact. #7: Facial muscles symmetrical and strength intact. #8: Hearing grossly normal to voice. #9,10: Uvula and soft palate rise in the midline. Swallow and voice are normal. #11: Trapezius and sternomastoid strength intact bilaterally. #12: Tongue midline. No fasciculations or atrophy. SENSATION: Sensation to touch and pinprick is normal. MOTOR: Normal tone in the upper and lower extremity. Normal muscle bulk. No fasciculations. No abnormal movements or posturing. Muscle strength of the major groups in the upper extremities is 5/5. Muscle strength of the major groups in the lower extremities is 5/5. REFLEXES: Deep tendon reflexes are symmetrical. No pathological reflexes. CEREBELLAR/COORDINATION: Finger to nose is normal bilaterally. GAIT/STATION: deferred. Labs/Diagnostic Data Labs Test 09/09/24 04:52 Range/Units White Blood Count 11.5 H 4.4-10.8 10^3/uL Red Blood Count 4.35 4.0-5.20 10^6/uL Hemoglobin 13.4 12.2-16.2 g/dL Hematocrit 39.2 36.0-46.0 % Mean Corpuscular Volume 90.1 80.0-100.0 fL Mean Corpuscular Hemoglobin 30.8 28.0-32.0 pg Mean Corpuscular Hemoglobin Concent 34.1 32.0-36.0 g/dL Red Cell Distribution Width 12.1 11.8-14.3 % Platelet Count 350 140-450 10^3/uL Mean Platelet Volume 7.4 6.9-10.8 fL Neutrophils (%) (Auto) 63.6 37.0-80.0 % Lymphocytes (%) (Auto) 29.8 10.0-50.0 % Monocytes (%) (Auto) 6.0 0.0-12.0 % Eosinophils (%) (Auto) 0.2 0.0-7.0 % Basophils (%) (Auto) 0.4 0.0-2.0 % Neutrophils # (Auto) 7.3 1.6-8.6 10 ^3/uL Lymphocytes # (Auto) 3.4 0.4-5.4 10 ^3/uL Monocytes # (Auto) 0.7 0-1.3 10 ^3/uL Eosinophils # (Auto) 0 0-0.8 10 ^3/uL Basophils # (Auto) 0 0-0.2 10 ^3/uL Nucleated Red Blood Cells 0.0 % Sodium Level 141 136-145 mmol/L Potassium Level 3.7 3.5-5.1 mmol/L Chloride Level 105 98-107 mmol/L Carbon Dioxide Level 23 20-31 mmol/L Anion Gap 13 5-15 Blood Urea Nitrogen 7 L 9-23 mg/dL Creatinine 0.67 0.550-1.02 mg/dL Glomerular Filtration Rate Calc 121 >90 mL/min BUN/Creatinine Ratio 10.4 10.0-20.0 Serum Glucose 88 74-106 mg/dL Calcium Level 8.7 8.7-10.4 mg/dL Total Bilirubin 0.6 0.2-1.0 mg/dL Aspartate Amino Transferase (AST) 30 13-40 U/L Alanine Aminotransferase (ALT) 43 H 7-40 U/L Alkaline Phosphatase 44 L 46-116 U/L Total Protein 6.9 5.7-8.2 g/dL Albumin 4.7 3.2-4.8 g/dL Assessment Generalized tonic seizure Insomnia, possibly related to anxiety Possible anxiety Plan/Recommendation Monitoring Supportive treatment Telemetry EEG Keppra 500 mg t.i.d. Ativan for seizure breakthrough Restoril 15 mg p.r.n. for insomnia She declined tele psych consultation Re: Possible anxiety Regular sleep schedule to avoid sleep deprivation Avoid skipping seizure medication She has been advised not to drive until she is cleared DMV report in the chart Plan discussed with: Patient, Other COMFORT WEN MD September 09, 2024 21:09
[2024-09-09] MEDS ORDERED: TEMAZEPAM 15 MG CAP PO PRN (22:00)
[2024-09-10 01:00] VITALS: BP 126/63; PULSE 82; RESP 19; TEMP 98; O2SAT 100
[2024-09-10 05:00] VITALS: BP 138/89; PULSE 89; RESP 19; TEMP 98.3; O2SAT 98
[2024-09-10 08:00] VITALS: PULSE 106; PULSE 81; RESP 19
[2024-09-10 08:43] VITALS: BP 118/64; PULSE 106; RESP 18; TEMP 97.7; O2SAT 96
[2024-09-10 10:21] LABS: Urine Bacteria FEW /hpf (None Seen); Urine Blood Negative /uL (Negative); Urine Clarity Clear (Clear); Urine Color Light-Yellow (Yellow); Urine Hyaline Cast FEW /lpf (0 - 2); Urine Mucus FEW (None Seen); Urine Protein, UAD Negative (Negative); Urine Specific Gravity 1.022 (1.001-1.035); Urine Squamous Epithelial Cell FEW /hpf (<5); Urine Urobilinogen Normal (Negative); Urine WBC 5 /HPF (0-5); Urine pH 5.5 (5.0-9.0)
--- NOTE | 2024-09-10 10:41 | DVHPN2 ---
Progress Note - Dictate Date Seen: September 10, 2024 Medical Necessity Reason Pt with a Central, PICC or Fol: No Subjective Ms. Caro is a 29 years old right-handed female with a history of obesity, she was admitted on 09/25/2024 with a chief complaint of seizure activity. I have seen and examined the patient, I have discussed with her nurse, I have also discussed with She is doing fine, no new complaints She is not interested in psychiatric evaluation WBC/HB/PLT/MCV, 09/09/2024: 11.5/13.4/350/90.1 CMP, 09/09/2024: Unremarkable MRI head, 09/09/2024: No evidence of acute infarction, intracranial hemorrhage, mass effect or hydrocephalus. No evidence of mesial temporal sclerosis. Left mastoid effusion. vital signs Vital Sign Date Time Temp Pulse Resp B/P (MAP) Pulse Ox O2 Delivery O2 Flow Rate FiO2 09/10/24 08:43 97.7 106 18 118/64 (82) 96 97.7 09/09/24 20:00 Room Air* 0 21 Total Intake and Output 09/09/24 09/09/24 09/10/24 15:00 23:00 07:00 Intake Total 200 ml 900 ml Balance 200 ml 900 ml medications Current Medications Medications Dose Ordered Sig/Christie Route Start Time Stop Time Status Last Admin Dose Admin Acetaminophen/ Hydrocodone Bitart 1 tab Q4HP PRN PO 09/08/24 15:15 09/09/24 23:00 1 TAB Ondansetron HCl 4 mg Q4HP PRN IV 09/08/24 15:15 Docusate Sodium 100 mg BIDPRN PRN PO 09/08/24 15:15 Acetaminophen 650 mg Q6HP PRN PO 09/08/24 15:15 09/09/24 08:58 650 MG Nitroglycerin 0.4 mg Q5MINP PRN SL 09/08/24 15:15 Morphine Sulfate 2 mg Q30M PRN IV 09/08/24 15:15 Levetiracetam 500 mg TID PO 09/08/24 15:34 09/10/24 05:59 500 MG Lorazepam 1 mg Q5MINP PRN IV 09/08/24 15:45 Temazepam 15 mg HS PRN PO 09/09/24 22:00 objective General: the patient is well developed and nourished. No acute distress. MENTAL STATUS: Awake and alert. Oriented to person, place, time and general circumstances. Able to give personal history. SPEECH, LANGUAGE, HIGHER CORTICAL FUNCTION: no aphasia or dysathria. CRANIAL NERVES: Pupils are equal, round and reactive. EOMs full and conjugate. No nystagmus. Facial sensation intact in all three divisions bilaterally. Mandibular strength intact. Facial muscles symmetrical and strength intact. SENSATION: Sensation to touch and pinprick is normal. MOTOR: Normal tone in the upper and lower extremity. Normal muscle bulk. No fasciculations. No abnormal movements or posturing. Muscle strength of the major groups in the extremities is 5/5. REFLEXES: Deep tendon reflexes are symmetrical. No pathological reflexes. CEREBELLAR/COORDINATION: Finger to nose is normal bilaterally. GAIT/STATION: deferred laboratory and microbiology Laboratory Tests 09/09/24 04:52 Test 09/09/24 04:52 Range/Units Serum Glucose 88 74-106 mg/dL Problem List Generalized tonic seizure Insomnia, possibly related to anxiety Possible anxiety Assessment/Plan Monitoring Supportive treatment Telemetry EEG, as an outpatient Keppra 500 mg t.i.d. Ativan for seizure breakthrough Restoril 15 mg p.r.n. for insomnia She declined tele psych consultation Re: Possible anxiety Regular sleep schedule to avoid sleep deprivation Avoid skipping seizure medication She has been advised not to drive until she is cleared DMV report in the chart Okay to discharge from neurologic point of view This medical document was created using an electronic medical record system with [employer] computerized dictation system. Although this document has been carefully reviewed, there may still be some phonetic and typographical errors. These areas are purely typographical due to imperfections of the software programs, and do not reflect any compromise in the patient's medical care. Prognosis poor Plan discussed with: Patient, Other Total Time (mins): 35 COMFORT WEN MD September 10, 2024 10:41
[2024-09-10 12:58] VITALS: BP 121/71; PULSE 93; RESP 18; TEMP 36.5; O2SAT 97
[2024-09-10 13:00] VITALS: BP 121/71; PULSE 93; RESP 18; TEMP 97.7; O2SAT 97
--- NOTE | 2024-09-10 13:33 | DVHSR ---
APPROVED REPORT EXAM: Two-dimensional and M-mode echocardiogram with Doppler and color Doppler. Blood Pressure: 141/83 mmHg INDICATION Arrhythmia RISK FACTORS Height: 5'4", Weight: 213 DIMENSIONS LVDd4.1 (3.8-5.7cm)LA (2D)3.7 (1.9-4.0cm)Aortic Root3.0 (2.0-3.7cm) LVDs2.6 (2.5-4.0cm)LA (MM) (1.9-4.0cm)Aortic Cusp Exc1.9 (1.5-2.0cm) EF (%) 68.0 (55-70%)Rt. Atrium3.5 (1.9-4.0cm)Asc. Aorta2.6 cm IVSd1.2 (0.7-1.1cm)RV (D)3.1 (1.8-2.4cm) PWd1.0 (0.7-1.1cm) Mitral Valve MitralMitral Stenosis E wave0.67m/sMV Mean GR.mmHg A wave0.60m/sMV Peak GR.mmHg E/A ratio1.12D MVAcm2 DECEL [id number] 1/2 Timems Aortic Valve Aortic ValveAortic Stenosis V10.99m/Roderick Mean GR.3mmHg V21.19m/Roderick Peak GR.6mmHg LVOT Diameter1.8 (1.8-2.4cm)Doppler AVA2.12cm2 Pulmonic Valve V21.12m/s Conclusion Sinus rhythm. RV enlargement. Valves are normal. 65% ejection fraction with normal RV function. Moderate TR. No pericardial effusion masses or vegetations.
--- NOTE | 2024-09-10 14:18 | DVHDS2 ---
Discharge Summary Date of Admission September 08, 2024 at 15:11 Date of Discharge: September 10, 2024 Labs/Diagnostic Data: Laboratory Results Test 09/10/24 10:14 09/09/24 04:52 Urine Color Light-yellow (Yellow) Urine Clarity Clear (Clear) Urine pH 5.5 (5.0-9.0) Urine Specific [place] 1.022 (1.001-1.035) Urine Protein Negative (Negative) Urine Ketones Negative (Negative) Urine Blood Negative /uL (Negative) Urine Nitrite Negative (Negative) Urine Bilirubin Negative (Negative) Urine Urobilinogen Normal mg/dL (Negative) Urine Leukocyte Esterase Negative /uL (Negative) Urine RBC 2 /hpf (0 - 4) Urine Microscopic WBC 5 /HPF (0-5) Urine Squamous Epithelial Cells Few /hpf (<5) Urine Bacteria Few /hpf (None Seen) Urine Hyaline Casts Few /lpf (0 - 2) Urine Mucus Few (None Seen) Urine Glucose Normal mg/dL (Normal) White Blood Count 11.5 10^3/uL (4.4-10.8) Red Blood Count 4.35 10^6/uL (4.0-5.20) Hemoglobin 13.4 g/dL (12.2-16.2) Hematocrit 39.2 % (36.0-46.0) Mean Corpuscular Volume 90.1 fL (80.0-100.0) Mean Corpuscular Hemoglobin 30.8 pg (28.0-32.0) Mean Corpuscular Hemoglobin Concent 34.1 g/dL (32.0-36.0) Red Cell Distribution Width 12.1 % (11.8-14.3) Platelet Count 350 10^3/uL (140-450) Mean Platelet Volume 7.4 fL (6.9-10.8) Neutrophils (%) (Auto) 63.6 % (37.0-80.0) Lymphocytes (%) (Auto) 29.8 % (10.0-50.0) Monocytes (%) (Auto) 6.0 % (0.0-12.0) Eosinophils (%) (Auto) 0.2 % (0.0-7.0) Basophils (%) (Auto) 0.4 % (0.0-2.0) Neutrophils # (Auto) 7.3 10 ^3/uL (1.6-8.6) Lymphocytes # (Auto) 3.4 10 ^3/uL (0.4-5.4) Monocytes # (Auto) 0.7 10 ^3/uL (0-1.3) Eosinophils # (Auto) 0 10 ^3/uL (0-0.8) Basophils # (Auto) 0 10 ^3/uL (0-0.2) Nucleated Red Blood Cells 0.0 % Sodium Level 141 mmol/L (136-145) Potassium Level 3.7 mmol/L (3.5-5.1) Chloride Level 105 mmol/L (98-107) Carbon Dioxide Level 23 mmol/L (20-31) Anion Gap 13 (5-15) Blood Urea Nitrogen 7 mg/dL (9-23) Creatinine 0.67 mg/dL (0.550-1.02) Glomerular Filtration Rate Calc 121 mL/min (>90) BUN/Creatinine Ratio 10.4 (10.0-20.0) Serum Glucose 88 mg/dL (74-106) Calcium Level 8.7 mg/dL (8.7-10.4) Total Bilirubin 0.6 mg/dL (0.2-1.0) Aspartate Amino Transferase (AST) 30 U/L (13-40) Alanine Aminotransferase (ALT) 43 U/L (7-40) Alkaline Phosphatase 44 U/L (46-116) Total Protein 6.9 g/dL (5.7-8.2) Albumin 4.7 g/dL (3.2-4.8) Other Laboratory Tests 09/09/24 04:52 Brief Hx & Hospital Course: Final diagnoses: Breakthrough seizures Seizure disorder Tachycardia 29-year-old female who was admitted for breakthrough seizures CT scan of the head was negative MRI of the brain was normal Neurology saw the patient recommended to continue the same medication that she takes at home which is Keppra She also had some tachycardia on admission Echocardiogram was done which showed RV enlargement and normal valves and ejection fraction 65% and moderate TR The patient is stable for discharge Continue Keppra 1500 mg daily Follow up with the primary care physician as soon as possible Condition at Discharge: Stable Final Diagnosis/Problems List Seizures Discharge Disposition: Home SNF Discharge Will this Physician continue t: No Discharge Instruct/Medications Diet: Cardiac 2g Na,low cholest Activity: No Restrictions, As Tolerated Follow Up/Referral: PCP LAURIE Medications: Same home meds Discharge Statement: "Patient was advised to return to the ER or call 911 if any headaches, dizziness, shortness of breath, chest pain, abdominal pain, bleeding, fevers, or worsening of medical condition. Patient was counseled about treatment plan, medications, possible side effects, patient�verbalized understanding. All questions were answered to the best of my ability. This discharge took greater then 30 minutes in planning, reviewing documentation, counseling the patient, and discussing with other team members." ASSESSMENT ASSESSMENT Assessment Seizures Date of Service: September 10, 2024 Billing Provider: BRYSON CABRERA MD Common Visit Codes: [id number] DISCH DAY >30min BRYSON CABRERA MD September 10, 2024 14:18
== END 2024-09-10 14:17 | disposition home or self-care (01) | DRG 101 ==
LOC: EDBD 08:31 → ER 08:31 → OVERFLOW 15:11 → ER 15:25 → OVERFLOW 15:25 → TELE-CENTR 23:23
PROVIDERS: ADMIT Internal Medicine Geriatric Medicine; ATTEND Internal Medicine Geriatric Medicine
DX: G40.409 Other generalized epilepsy and epileptic syndromes, not intractable, without status epilepticus (principal); Z68.36 Body mass index [BMI] 36.0-36.9, adult; E66.9 Obesity, unspecified; G47.00 Insomnia, unspecified; Z79.899 Other long term (current) drug therapy; Z82.49 Family history of ischemic heart disease and other diseases of the circulatory system; Z91.83 Wandering in diseases classified elsewhere
CPT/HCPCS: 36415; 70450; 70551; 80048; 80053; 81001; 85025; 93306; 96361; 96374; 96375; 99291; 99292; G0378